=== PATIENT | male | born 1955 | race Caucasian/White ===

== ENCOUNTER 2019-06-07 12:10 | Outpatient (CLI) | payer MEDICARE ==
[~2019-06-07 12:10] MED LIST: REGADENOSON 0.4 MG/5 ML SYRINGE ONE
== END 2019-06-07 23:59 | disposition home or self-care (01) ==
LOC: CFH 12:10
PROVIDERS: ATTEND Internal Medicine Cardiovascular Disease
DX: I45.10 Unspecified right bundle-branch block (principal); R01.1 Cardiac murmur, unspecified; R06.00 Dyspnea, unspecified
CPT/HCPCS: 78452; 93017; A9502; J2785